=== PATIENT | male | born 1990 | race Hispanic/Latino ===

== ENCOUNTER 2017-10-19 20:55 | Emergency (ER) | payer OTHER ==
[2017-10-19 21:21] VITALS: O2SAT 97
--- NOTE | 2017-10-19 22:14 | ED PDOC ---
HPI: Fever Fever Onset Was: 10/18/17 The Fever Was Measured: Tactile What Antipyretic Given Prior To Arrival: Unknown Recent Sick Contacts: Yes (girlfriend with coxsackie virus last week) Have you had recent travel within the past 21 days to any of the following countries: [place], [place], [place] or [place]?: No Does Patient Have Hx Of Febrile Seizures: No Did The Patient Have A Seizure Today: No Additional Comments: 27 year od male presents to ED with complaints of fever associated with mild sore throat, decreased appetite and bodyaches since last night. Patient reports his girlfriend had a coxsackie virus last week. He denies any recent travel or further complaints. Past Medical History Reviewed: Historical Data, Nursing Documentation, Vital Signs Vital Signs: Last Vital Signs Temp 103 F H 10/19/17 21:57 Pulse 110 H 10/19/17 21:19 Resp 20 10/19/17 21:19 BP 117/71 10/19/17 21:19 Pulse Ox 97 10/19/17 22:17 - Medical History PMH: No Chronic Diseases - Surgical History Surgical History: No Surg Hx - Family History Family History: States: Unknown Family Hx - Social History Current smoker - smoking cessation education provided: No Ex-Smoker (has not smoked in the last 12 months): No Alcohol: None Drugs: Denies - Allergies Allergies/Adverse Reactions: Allergies Allergy/AdvReac Type Severity Reaction Status Date / Time No Known Allergies Allergy Verified 10/19/17 21:18 Review of Systems ROS Statement: Except As Marked, All Systems Reviewed And Found Negative Constitutional: Positive for: Fever, Other (bodyaches) ENT: Positive for: Throat Pain (mild) Gastrointestinal: Positive for: Other (decreased appetite) Physical Exam - Reviewed Nursing Documentation Reviewed: Yes Vital Signs Reviewed: Yes - Physical Exam Appears: Positive for: No Acute Distress Skin: Positive for: Warm (febrile) - ECG O2 Sat by Pulse Oximetry: 97 (RA) Pulse Ox Interpretation: Normal Medical Decision Making Medical Decision Making: Initial Impression: Febrile illness Initial Plan: * Toradol 30mg IM * Tylenol 975mg PO * Rapid strep Scribe Attestation: Documented by Maame Samaniego, acting as a scribe for Marilyn Lezama MD. Provider Scribe Attestation: All medical record entries made by the Scribe were at my direction and personally dictated by me. I have reviewed the chart and agree that the record accurately reflects my personal performance of the history, physical exam, medical decision making, and the department course for this patient. I have also personally directed, reviewed, and agree with the discharge instructions and disposition. Disposition - Clinical Impression Clinical Impression: Fever in adult - Disposition Referrals: [facility] [place] [Outside] - 10/20/17 Disposition: Routine/Home Disposition Time: 23:04 Condition: IMPROVED Additional Instructions: PLEASE DRINK PLENTY OF HYDRATING FLUIDS AND REST FOLLOW UP WITH [employer] TOMORROW FOR REEVALUATION AND REFERRAL TO LOCAL PRIMARY CARE PHYSICIAN TAKE TYLENOL AND/OR ADVIL FOR FEVER/BODY ACHES RETURN TO ER FOR --INTRACTABLE PAIN OR VOMITING --FAINTING OR NEAR FAINTING --CHEST PAIN OR SHORTNESS OF BREATH --ANY OTHER WORRISOME SYMPTOMS. Instructions: Fever, Adult (DC), Viral Syndrome (DC) Forms: [facility] ED School/Work Excuse
[2017-10-19 23:15] VITALS: BP 110/58; PULSE 80; TEMP 99.2
[2017-10-20 00:05] VITALS: RESP 16
== END 2017-10-19 23:55 | disposition home or self-care (01) ==
LOC: H.ER 20:55
DX: R50.9 Fever, unspecified (principal)
CPT/HCPCS: 87070; 87430; 96372; 99284; J1885